=== PATIENT | female | born 1945 | race Hispanic/Latino ===

== ENCOUNTER 2017-01-20 07:05 | Outpatient (CLI) | payer MEDICARE ==
--- NOTE | 2017-01-20 11:32 | Cat Scan Report ---
CT NECK WITHOUT CONTRAST HISTORY: Lymphoma. TECHNIQUE: Helical CT with sagittal and coronal reformatted images. FINDINGS: Compared to 06/19/16. Soft tissue structures of the neck remain within normal limits. The parapharyngeal soft tissues are unremarkable. No suspicious mass or adenopathy has developed in the neck. The thyroid gland is atrophic or surgically absent. No suspicious bony lesion. The imaged brain is unremarkable. IMPRESSION: No evidence for disease recurrence or metastasis in the neck. No mass or adenopathy. No significant change since 06/19/16.
--- NOTE | 2017-01-20 12:35 | Cat Scan Report ---
CT CHEST, ABDOMEN AND PELVIS WITHOUT CONTRAST INDICATION: Lymphoma. COMPARISON: 06/19/[address] and 03/05/2015 PET/CT images. FINDINGS: Chest, abdomen and pelvis CT performed following oral contrast only. CHEST: Normal heart size. No effusions. Mild aortic arch and left coronary calcifications again noted. No aortic aneurysm, though assessment of the great vessels and for detecting subtle lymphadenopathy limited due to lack of IV contrast. Patent central airway. No size significant axillary lymphadenopathy. Thyroid not visualized. Chronic consolidation/scarring in both upper lobes posterosuperiorly again noted as also mild emphysematous changes. Stable 3 mm noncalcified peripheral right upper lobe nodule, axial image 321 and another in the right lower lobe on axial image 363, series 2. Slight right middle lobe and lingular scarring. Nonspecific distal esophageal wall prominence/thickening, not excluded for gastroesophageal reflux and/or hiatal hernia, amongst others. ABDOMEN: Please note that sensitivity to detect small visceral lesions is limited due to the absence of intravenous contrast. Stable cholecystectomy clips. Slightly lobulated kidneys with small extrarenal pelves bilaterally. Small, 2 mm nonobstructing right renal calculus inferiorly, axial image 611, series 2 again noted. Otherwise grossly unremarkable unenhanced liver, spleen, pancreas, adrenals, nonaneurysmal abdominal aorta with atherosclerotic calcifications and IVC. No hydronephrosis, ascites or definite significant adenopathy. Opacified GI tract nonobstructive. Normal long appendix extending into the right hemipelvis. Mild colonic stool. Numerous descending colon diverticuli. PELVIS: Uterus surgically absent. Grossly unremarkable non-opacified urinary bladder with appendix coursing adjacent to it near the right groin as on axial series 2, images [id number]. Multiple proximal to mid sigmoid diverticuli. Small left pelvic phleboliths. No free fluid or significant adenopathy. Approximately 40% L5 vertebral body chronic height loss with degenerative spurring and mild inferior endplate irregularity/Schmorl's node. Approximately 4 mm anterolisthesis of L4 over L5. Moderate to severe L4-L5 and mild L5-S1 disc narrowing with vacuum phenomena also noted. Demineralized bones with multilevel spinal degenerative changes including lower lumbar facet arthropathy seen. CONCLUSION: No definite CT evidence of metastatic disease in the chest, abdomen or pelvis on this unenhanced exam with various incidental findings, including stable bilateral upper lobe chronic consolidation/scarring, mild emphysematous changes, two stable 3 mm right lung nodules nodule, cholecystectomy, tiny nonobstructing right renal calculus, diverticulosis, hysterectomy and advanced lower lumbar degenerative changes, amongst others, as detailed above. Please correlate. Thank you for the opportunity to participate in this patient's care.
== END 2017-01-20 07:06 | disposition home or self-care (01) ==
LOC: CT 07:05
DX: C85.88 Other specified types of non-Hodgkin lymphoma, lymph nodes of multiple sites (principal); K57.90 Diverticulosis of intestine, part unspecified, without perforation or abscess without bleeding; R91.1 Solitary pulmonary nodule; M47.896 Other spondylosis, lumbar region; M12.88 Other specific arthropathies, not elsewhere classified, other specified site; I87.8 Other specified disorders of veins; Z90.49 Acquired absence of other specified parts of digestive tract
CPT/HCPCS: 70490; 71250; 74176

== ENCOUNTER 2017-08-04 08:13 | Outpatient (CLI) | payer MEDICARE ==
--- NOTE | 2017-08-04 10:46 | Cat Scan Report ---
CT scan of neck without IV contrast: History: Lymphoma. Findings: Laryngeal and tracheal air column appears normal. Pre-and paravertebral soft tissue appears normal. No evidence of lymphadenopathy. The submandibular salivary glands and the parotid glands appears normal. Impression: No definite neck masses are identified.
--- NOTE | 2017-08-04 10:58 | Cat Scan Report ---
CT scan of chest without IV contrast: Compared to 01/20/17. History: Lymphoma. Findings: No endobronchial or mediastinal mass. No mediastinal, hilar or axillary adenopathy. No pleural or pericardial effusion. 3 mm noncalcified nodule in the right lung image 101 series 2. The second 3 mm nodule right lung image 61 series 2. Bilateral apical scarring and pleural thickening. More pronounced on the left side. Impression: Stable to nodules in right lung. Apical scarring and pleural thickening. No significant interval change.
--- NOTE | 2017-08-04 11:02 | Cat Scan Report ---
CT scan of abdomen and pelvis without IV contrast: History: Lymphoma. Findings: Normal liver spleen and pancreas. Patient status post cholecystectomy. Normal adrenals. Tiny nonobstructing 1 mm calculus right kidney. Normal bladder. No free intraperitoneal fluid or air. No evidence of adenopathy. Gaseous colon with moderate volume stool in colon. No evidence of appendicitis or diverticulitis. Diverticulosis colon. Impression: No abdominal mass or adenopathy. Tiny nonobstructing 1 mm on calculus right kidney.
== END 2017-08-04 08:14 | disposition home or self-care (01) ==
LOC: CT 08:13
DX: C85.88 Other specified types of non-Hodgkin lymphoma, lymph nodes of multiple sites (principal); N20.0 Calculus of kidney; R91.1 Solitary pulmonary nodule; J98.4 Other disorders of lung; Z90.49 Acquired absence of other specified parts of digestive tract
CPT/HCPCS: 70490; 71250; 74176

== ENCOUNTER 2018-09-13 11:43 | Outpatient (CLI) | payer MEDICARE ==
[2018-09-13 13:09] LABS: Blood Urea Nitrogen 13 mg/dL (7-17)
--- NOTE | 2018-09-14 01:58 | Cat Scan Report ---
FINAL REPORT EXAM: CT NECK W CON HISTORY: DIFFUSE NON-HODGKIN'S LYMPHOMA, LARGE CELL TECHNIQUE: Routine axial imaging was obtained of the soft tissues of the neck following the intraven ous injection of 100 cc of Omnipaque 300. Sagittal and coronal reconstructions were reviewed. FINDINGS: The airway appears normal. There is no evidence of lymphadenopathy in any compartment of the neck. Th e vascular structures enhance normally. The parotid and submandibular glands appear normal. The retro pharyngeal space appears normal. The vocal cords appear normal. The visualized sinuses are clear. The mastoid air cells are well pneumatized. The skeletal structures reveal degenerative arthritic change s lower cervical spine. IMPRESSION: No evidence of lymphadenopathy in any compartment of the neck. No acute process identified.
--- NOTE | 2018-09-14 02:02 | Cat Scan Report ---
FINAL REPORT EXAM: CT CHEST W CON HISTORY: DIFFUSE NON-HODGKIN'S LYMPHOMA, LARGE CELL TECHNIQUE: Routine axial imaging was obtained of the chest following the intravenous injection of 10 0 cc of Omnipaque 300. Sagittal and coronal reconstructions were reviewed. There are no previous stud ies available for comparison. FINDINGS: The heart size is normal. Pericardial fluid is not seen. The thoracic aorta is normal in configuratio n. There is no evidence of adenopathy in the shabbir or mediastinum. The lungs reveal pleural parenchyma l scarring in the apices with multiple subpleural blebs. There are no infiltrates or effusions. The l ungs are not overtly congested. The skeletal structures appear well maintained. The thyroid gland is not seen. In the upper abdomen the adrenal glands appear normal. The gallbladder has been removed. Th ere is a 4 mm in diameter cortical cyst left kidney. IMPRESSION: No evidence of mediastinal or hilar adenopathy. Pleural parenchymal scarring in the lung apices with multiple small blebs. No acute process in the ch est. Cholecystectomy. Small cortical cyst in left kidney.
--- NOTE | 2018-09-14 03:12 | Cat Scan Report ---
FINAL REPORT EXAM: CT ABDOMEN PELVIS W CON HISTORY: DIFFUSE NON-HODGKIN'S LYMPHOMA, LARGE CELL TECHNIQUE: Routine axial imaging was obtained of the abdomen and pelvis following the intravenous in jection of 100 cc of Omnipaque 300. Oral contrast was also administered. Sagittal coronal reconstruct ions were reviewed. Comparison is made to the study of 08/04/2017. FINDINGS: The lung bases are negative for infiltrates or effusions. There is a small hiatal hernia. The gallbladder has been removed. The liver and biliary tree appear normal. The pancreas, spleen, and adrenal glands appear normal. The kidneys reveal a 1 cm cortical cyst in left kidney. There is no ev idence of hydronephrosis. The abdominal aorta is normal in caliber. Adenopathy is not identified. The re is a large amount retained feces in the colon. The appendix appears normal. There no evidence of f ree fluid or adenopathy. In the pelvis the bladder appears normal. The uterus is not seen. The skelet al structures reveal multilevel disc degeneration lumbar spine with chronic compression fractures of L5 and L2. IMPRESSION: Cholecystectomy. No acute process in the abdomen and pelvis. Small hiatal hernia. No evidence of lymphadenopathy. Hysterectomy. Chronic compression fractures of L2 and L5 along with multilevel disc degeneration in the lumbar spin e
== END 2018-09-13 11:44 | disposition home or self-care (01) ==
LOC: CT 11:43
PROVIDERS: ATTEND Internal Medicine Hematology & Oncology
DX: M48.56XA Collapsed vertebra, not elsewhere classified, lumbar region, initial encounter for fracture (principal); M47.892 Other spondylosis, cervical region; N28.1 Cyst of kidney, acquired; K44.9 Diaphragmatic hernia without obstruction or gangrene; Z90.49 Acquired absence of other specified parts of digestive tract; Z90.710 Acquired absence of both cervix and uterus
CPT/HCPCS: 36415; 70491; 71260; 74177; 82565; 84520

== ENCOUNTER 2019-09-01 06:00 | Outpatient (CLI) | payer MEDICARE ==
[2019-09-01 08:27] LABS: Blood Urea Nitrogen 15 mg/dL (7-17)
--- NOTE | 2019-09-01 10:09 | Cat Scan Report ---
CT CHEST, ABDOMEN, AND PELVIS WITHOUT CONTRAST INDICATION : C83.30 DIFFUSE NON HODGKINS LYMPHOMA LARGE CELL DISORDER. TECHNIQUE: Helical CT was sagittal and coronal reformatted images. All CT scans at this location ar e performed using CT dose reduction for ALARA by means of automated exposure control. COMPARISON: 08/04/2017 FINDINGS: CHEST: The thyroid gland, tracheobronchial tree, esophagus, heart, mediastinal vessels, lung bird and bony thorax are unremarkable. No suspicious thoracic mass or adenopathy has developed. ABDOMEN/PELVIS: The gallbladder has been removed. The liver, pancreas, spleen, kidneys, adrenal glan ds and bladder are unremarkable. Hysterectomy changes are suspected. Moderate diverticulosis the dist al colon is noted. No acute inflammation or obstruction. Normal appendix. No evidence for suspicious mass, adenopathy, free fluid or bony lesion. IMPRESSION: Stable findings since 08/04/2017. No evidence for disease recurrence or metastasis. Signer Name: Yogesh Denise Jr, MD Signed: 09/01/2019 10:05 AM Workstation Name: [id number]
== END 2019-09-01 06:01 | disposition home or self-care (01) ==
LOC: CT 06:00
PROVIDERS: ATTEND Internal Medicine Hematology & Oncology
DX: C83.30 Diffuse large B-cell lymphoma, unspecified site (principal); K57.30 Diverticulosis of large intestine without perforation or abscess without bleeding
CPT/HCPCS: 36415; 71250; 74176; 82565; 84520